=== PATIENT | female | born 1935 | race Two or more races ===

== ENCOUNTER → 2017-03-16 | Outpatient (CLI) | payer MEDICARE ==
[~2017-03-16] MED LIST: REGADENOSON 0.4 MG/5 ML DISP.SYRIN. IV ONE
--- NOTE | 2017-03-16 14:12 | RAD ---
APPROVED REPORT Test Type: Pharmacological Stress Nurse/Tech: Melo Rivas RN Test Indications: chest pain, headache, dizziness Cardiac History: see ehr Medications: see ehr Medical History: see ehr Resting ECG: SB Resting Heart Rate: 39 bpm Resting Blood Pressure: 166/62mmHg Pretest Chest Pain: None Nurse/Tech Notes Lungs CTA, S1, S2 Consent: The procedure was explained to the patient in lay terms. Informed consent was witnessed. Garland eout was entered into Dogi. History and Stress Test performed by Carroll CallahanNMatti Pharm. Details Pharmacologic stress testing was performed using 0.4mg per 5ml of regadenoson given intravenously ove r 7-10 seconds. Stress Symptoms No chest pain or symptoms. POST EXERCISE Reason for Termination: Infusion complete Max HR: 73 bpm Max Blood Pressure: 166/62mmHg Blood Pressure response to exercise: Normal blood pressure response during stress. Chest Pain: No. Arrhythmia: No. ST Change: No. INTERPRETATION Stress EKG Conclusion: The resting EKG showed a sinus bradycardia and mild nonspecific ST segment nando nges. The stress EKG showed no significant changes from baseline. No EKG evidence of stress induced ischemia. Imaging Protocol IMAGE PROTOCOL: Rest Tc-99m/stress Tc-99m 1 day Rest: Stress: Viability: Radiopharm.Tc99m PiknnssatMx05y Sestamibi [id number] 32mCi Duration 15min. 10min. Img Date 03/16/2017 03/16/2017 Inj-Img [id number]. 60min. Rest Admin Site:IV - Right AntecubitalAdministrator:MIKE Alston, ARRT (R)(N) Stress Admin Site: IV - Right AntecubitalAdministrator: Ynes James, RT (R)(N) STRESS DATA End Diast. Vol.60.0mlAv. Heart Rate64.0bpm End Syst. Vol.15.0mlCO Index BSA0.0L/min Myocardial Cftu631.0gEject. Ljinuxhp92.0% Stress Rates Pk. Fill Rate3.48EDV/secLVtime Pk. Fill 249.47msec Pk. Empty Rate3.80ESV/secLVtime Pk. Qwanz201.40msec 1/3 Pk. Fill1.10EDV/sec Stress Scores Regional WT0.00Summed WT0.00 Regional WM0.00Summed WM0.00 LV Perfusion The stress scans showed no defects. The rest scans showed no defects. Nuclear images show no reversible ischemia or infarct. Wall Motion Normal LV systolic function with an ejection fraction of greater than 70%. LV Perf. Quant 17 Seg. SSS1.00 17 Seg. SRS0.00 17 Seg. SDS1.00 Stress Defect Extent (% LAD)0.00Rest Defect Extent (% LAD)0.00Rev. Defect Extent (% LAD)0.00 Stress Defect Extent (% LCX) 0.00Rest Defect Extent (% LCX)0.00Rev. Defect Extent (% LCX)0.00 Stress Defect Extent (% RCA)0.00Rest Defect Extent (% RCA)0.00Rev. Defect Extent (% RCA)0.00 Stress Defect Extent (% HANNA)0.00Rest Defect Extent (% HANNA)0.00Rev. Defect Extent (% HANNA)0.00 Conclusion 1. Baseline sinus bradycardia. 2. No EKG evidence of stress induced ischemia. 3. Nuclear scans show no reversible ischemia or infarct. 4. Normal LV systolic function with an ejection fraction of greater than 70%. 5. Low risk Lexiscan stress test.
== END | disposition home or self-care (01) ==
LOC: NM 08:46
PROVIDERS: ATTEND Physician Assistant
DX: R07.9 Chest pain, unspecified (principal); R42 Dizziness and giddiness; R20.0 Anesthesia of skin; R51 Headache
CPT/HCPCS: 78452; 93017; 96374; 96375; 96376; J2785; A9500

== ENCOUNTER → 2017-07-29 | Outpatient (CLI) | payer MEDICARE ==
--- NOTE | 2017-07-29 11:36 | RAD ---
Indication abdominal pain. A limited abdominal ultrasound examination was performed. Examination was targeted to the right lower quadrant. No obvious abnormality was seen. No mass or hernia was seen in the area scanned. IMPRESSION: Normal targeted ultrasound of the right lower quadrant.
== END | disposition home or self-care (01) ==
LOC: US 10:31
PROVIDERS: ATTEND Physician Assistant
DX: R10.9 Unspecified abdominal pain (principal)
CPT/HCPCS: 76705

== ENCOUNTER 2021-11-08 13:25 | Inpatient (IN) | payer MEDICARE ==
[~2021-11-08] VITALS: Ht 139.7 cm; Wt 69.6 kg
[2021-11-08] MEDS ORDERED: ONDANSETRON PF 4 MG/2 ML VIAL. IVP ONE (16:00)
[2021-11-08] MEDS ORDERED: IV NORMAL SALINE 1000ML BAG 1,000 ML IV ONE (16:00)
--- NOTE | 2021-11-08 16:00 | PHYS DOC ---
Past Medical History Past Medical History: No Pertinent History Past Surgical History: Other Additional Past Surgical Histo: LEFT MASECTOMY (BENIGN), BILATERAL WRIST SX Smoking Status: Never Smoker Alcohol Use: None Drug Use: None General Adult EDM: Chief Complaint: SHORTNESS OF BREATH HPI: HPI: Patient is a 86 year old female with history of arthritis and GERD who presents with 4 days of dyspnea. Patient denies any pain, however states that she has felt increasingly short of breath over the past 4 days, including while at rest. Patient reports associated nausea and anorexia. She reports decreased oral intake of both food and fluids. She denies fever, chills, nasal congestion, sore throat chest pain, palpitations, productive cough, abdominal pain, vomiting, diarrhea, constipation. Review of Systems: Review of Systems: Constitutional: See HPI Respiratory: See HPI Cardiovascular: See HPI GI: See HPI : Denies dysuria or hematuria. Musculoskeletal: Denies back pain or joint pain. Integument: Denies rash or other skin lesions. Neurologic: Denies headache, focal weakness or sensory changes. Heart Score: C/O Chest Pain: No Allergies: Allergies: Allergies Coded Allergies Type Severity Reaction Last Updated Verified No Known Drug Allergies 03/16/17 No Physical Exam: PE: Constitutional: Well developed, well nourished, no acute distress, non-toxic appearance. Cardiovascular: Heart rate regular rhythm, no murmur. Lungs & Thorax: Left basilar wet crackles, clear to auscultation in other lung soto. Abdomen: Bowel sounds normal, soft, no tenderness, no masses, no pulsatile masses. Skin: Warm, dry, no erythema, no rash. Back: No step-off, no tenderness. Extremities: No tenderness, no cyanosis, no clubbing, ROM intact, no edema. Bilateral varicose veins distal lower extremities. Neurologic: Alert and oriented x4, no focal deficits noted. Current Patient Data: Labs: Laboratory Tests Test 11/08/21 15:26 11/08/21 16:02 Influenza Type A Antigen Negative (NEGATIVE) Influenza Type B Antigen Negative (NEGATIVE) SARS-CoV-2 Antigen (Rapid) Positive (NEGATIVE) White Blood Count 6.0 x10^3/uL (4.0-11.0) Red Blood Count 4.45 x10^6/uL (3.50-5.40) Hemoglobin 14.7 g/dL (12.0-15.5) Hematocrit 43.3 % (36.0-47.0) Mean Corpuscular Volume 97 fL (79-100) Mean Corpuscular Hemoglobin 33 pg (25-35) Mean Corpuscular Hemoglobin Concent 34 g/dL (31-37) Red Cell Distribution Width 13.9 % (11.5-14.5) Platelet Count 186 x10^3/uL (140-400) Neutrophils (%) (Auto) 75 % (31-73) Lymphocytes (%) (Auto) 14 % (24-48) Monocytes (%) (Auto) 11 % (0-9) Eosinophils (%) (Auto) 0 % (0-3) Basophils (%) (Auto) 0 % (0-3) Neutrophils # (Auto) 4.5 x10^3/uL (1.8-7.7) Lymphocytes # (Auto) 0.8 x10^3/uL (1.0-4.8) Monocytes # (Auto) 0.6 x10^3/uL (0.0-1.1) Eosinophils # (Auto) 0.0 x10^3/uL (0.0-0.7) Basophils # (Auto) 0.0 x10^3/uL (0.0-0.2) Sodium Level 141 mmol/L (136-145) Potassium Level 4.8 mmol/L (3.5-5.1) Chloride Level 106 mmol/L (98-107) Carbon Dioxide Level 27 mmol/L (21-32) Anion Gap 8 (6-14) Blood Urea Nitrogen 35 mg/dL (7-20) Creatinine 1.4 mg/dL (0.6-1.0) Estimated GFR (Cockcroft-Gault) 35.7 BUN/Creatinine Ratio 25 (6-20) Glucose Level 116 mg/dL (70-99) Calcium Level 8.4 mg/dL (8.5-10.1) Total Bilirubin 0.5 mg/dL (0.2-1.0) Aspartate Amino Transf (AST/SGOT) 86 U/L (15-37) Alanine Aminotransferase (ALT/SGPT) 37 U/L (14-59) Alkaline Phosphatase 143 U/L (46-116) Total Protein 7.4 g/dL (6.4-8.2) Albumin 3.2 g/dL (3.4-5.0) Albumin/Globulin Ratio 0.8 (1.0-1.7) Vital Signs: Vital Signs Date Time Temp Pulse Resp B/P (MAP) Pulse Ox O2 Delivery O2 Flow Rate FiO2 11/08/21 15:15 68 16 145/68 (93) 94 Room Air EKG: EKG: EKG Interpreted by Dr. Boswell at 1521: Regular rate and rhythm 69 bpm with no ecto pic beats. QT 402 ms/QTc 432 ms. No STEMI. Radiology/Procedures: Radiology/Procedures: PROCEDURE: PORTABLE CHEST 1V XR CHEST 1V Clinical History: Reason: SOB / Spl. Instructions: / History: Technique: AP view of the chest was obtained at 11/08/2021 4:00 PM. Comparison: None. Findings: The heart is top normal in size. There is patchy reticular opacities of the lungs bilaterally. The pulmonary vessels are not well seen. Impression: Interstitial opacities is nonspecific and could be pulmonary edema or atypical pneumonia or chronic pulmonary fibrosis. Comparison to old chest x-ray may be h elpful. Electronically signed by: Eris Kathleen III, MD (11/08/2021 4:33 PM) [facility] Course & Med Decision Making: Course & Med Decision Making Pertinent Labs and Imaging studies reviewed. (See chart for details) Patient is an 86-year-old female with noncontributory past medical history who presents with 4 days of shortness of breath. Physical exam concerning for left lower lobe pathology. Work-up today will include labs, Covid and flu testing, chest x-ray. Patient is Covid positive with evidence of atypical pneumonia on chest x-ray as well as new oxygen requirement of 2L NC. Patient gladly accepted by Dr. Luz for admission. Pulmonology will be consulted. Dragon Disclaimer: DragJaspersoft Disclaimer: This electronic medical record was generated, in whole or in part, using a voice recognition dictation system. Departure Departure Impression: Primary Impression: Acute hypoxemic respiratory failure due to COVID-19 Disposition: ADMITTED INPATIENT Admitting Physician: Randolph Luz Referrals: RANDOLPH LUZ MD (PCP) LENA LARSON Nov 08, 2021 16:00
[2021-11-08 16:14] LABS: INFLUENZA A PATIENT NEGATIVE (NEGATIVE); INFLUENZA B PATIENT NEGATIVE (NEGATIVE)
[2021-11-08 16:20] LABS: BASO % 0 % (0-3); EOS % 0 % (0-3); HEMATOCRIT 43.3 % (36.0-47.0); HEMOGLOBIN 14.7 g/dL (12.0-15.5); LYMPH # 0.8 x10^3/uL (1.0-4.8); LYMPH % 14 % (24-48); MEAN CORPUSCULAR HEMOGLOBIN 33 pg (25-35); MEAN CORPUSCULAR HGB CONC 34 g/dL (31-37); MEAN CORPUSCULAR VOLUME 97 fL (79-100); MONO # 0.6 x10^3/uL (0.0-1.1); MONO % 11 % (0-9); NEUT # 4.5 x10^3/uL (1.8-7.7); NEUT % 75 % (31-73); PLATELET COUNT 186 x10^3/uL (140-400); RED BLOOD COUNT 4.45 x10^6/uL (3.50-5.40); RED CELL DISTRIBUTION WIDTH 13.9 % (11.5-14.5)
[2021-11-08] MEDS ORDERED: ONDANSETRON PF 4 MG/2 ML VIAL. IVP PRN (16:30)
[2021-11-08] MEDS ORDERED: DEXAMETHASONE SOD PHOS 4 MG/ML VIAL IVP ONE (16:30)
[2021-11-08 16:34] LABS: CALCIUM 8.4 mg/dL (8.5-10.1); CREATININE 1.4 mg/dL (0.6-1.0); GFR 35.7; POTASSIUM 4.8 mmol/L (3.5-5.1)
--- NOTE | 2021-11-08 16:36 | RAD ---
XR CHEST 1V Clinical History: Reason: SOB / Spl. Instructions: / History: Technique: AP view of the chest was obtained at 11/08/2021 4:00 PM. Comparison: None. Findings: The heart is top normal in size. There is patchy reticular opacities of the lungs bilaterally. The pu lmonary vessels are not well seen. Impression: Interstitial opacities is nonspecific and could be pulmonary edema or atypical pneumonia or chronic p ulmonary fibrosis. Comparison to old chest x-ray may be helpful. Electronically signed by: Eris Kathleen III, MD (11/08/2021 4:33 PM) [facility]
[2021-11-08 16:39] LABS: ALBUMIN 3.2 g/dL (3.4-5.0); ALBUMIN/GLOBULIN RATIO 0.8 (1.0-1.7); TOTAL BILIRUBIN 0.5 mg/dL (0.2-1.0); TOTAL PROTEIN 7.4 g/dL (6.4-8.2)
--- NOTE | 2021-11-08 18:20 | EKG ---
[facility] [address] [place] [address] Test Date: 2021-11-08 Test Time: 15:16:58 Pat Name: JD COOK Department: Room: Gender: F Subcontracts Manager: : 1935 Requested By: LENA LARSON Order Number: [id number] Reading MD: Wade Valdez MD Measurements Intervals [place] Rate: 69 P: 41 MO: 186 QRS: -41 QRSD: 74 T: 36 QT: 402 QTc: 432 Interpretive Statements SINUS RHYTHM LAD NON-SPECIFIC ST/T CHANGES Electronically Signed On 11-09-2021 9:22:17 RIVET SPINNER by Wade Valdez MD
[2021-11-08] MEDS: ACETAMINOPHEN 325 MG TABLET. PO PRN (18:44)
[2021-11-08 20:30] VITALS: BP 139/49
[2021-11-08 22:50] VITALS: BP 132/75
[2021-11-09 03:35] VITALS: BP 114/76
[2021-11-09 07:00] VITALS: BP 141/62
--- NOTE | 2021-11-09 08:41 | PDOC ---
Provider Note Date of Service: DATE: 11/09/21 TIME: 08:41 Provider Note dictated Justifications for Admission Other Justification LJ LUZ MD Nov 09, 2021 08:41
--- NOTE | 2021-11-09 09:55 | CONS ---
DATE OF CONSULTATION: 11/09/2021 PULMONARY CONSULTATION ATTENDING PHYSICIAN: Randolph Hernandez MD. REASON FOR CONSULTATION: COVID-19 pneumonia and respiratory failure. HISTORY OF PRESENT ILLNESS: The patient is an 86-year-old female who has a history of arthritis and GERD. She presented to the hospital with 4 days of dyspnea. She has a mild cough. No chest pain, no headaches, no nausea, vomiting, no diarrhea, no dysuria. The patient is not vaccinated for COVID. She was tested positive for COVID. Chest x-ray revealed mild interstitial infiltrates. She is currently requiring only 2 liters of oxygen via nasal cannula. I have been asked to see her for further evaluation. PAST MEDICAL HISTORY: Significant for history of GERD and arthritis. PAST SURGICAL HISTORY: Left mastectomy. ALLERGIES: None. MEDICATIONS: Reviewed as listed in the MRAD. SYSTEM REVIEW: A 12-point system obtained. Pertinent positives discussed in my present illness, otherwise noncontributory. All systems that were negative were reviewed as well. SOCIAL HISTORY: Nonsmoker. FAMILY HISTORY: Noncontributory to lungs. PHYSICAL EXAMINATION: VITAL SIGNS: Reviewed. She is afebrile, pulse ox 96% on 2 liters. GENERAL: Visual exam done due to COVID-19. No paradoxical breathing. No skin rash. EXTREMITIES: No leg edema. LABORATORY DATA: Reviewed. BUN 35, creatinine 1.4. Sodium 141. White cell count 6, hemoglobin 14.7, platelets 186. IMPRESSION: 1. Acute hypoxic respiratory failure secondary to COVID-19 viral pneumonia. 2. Abnormal chest x-ray with bilateral interstitial infiltrates consistent with COVID-19 viral pneumonia. 3. No significant tobacco use. 4. Acute kidney injury. RECOMMENDATIONS: 1. The patient is stable from a pulmonary standpoint. She is currently on 2 liters nasal cannula. 2. We will continue to finish dexamethasone for a total of 10 days. 3. Initiate remdesivir if oxygen requirement worsened. 4. IV hydration and follow renal function. 5. If oxygen requirement remains stable, she could be discharged in the next 24 hours. 6. Discussed with RN. MOSQUERA/NAM DR: Angel TID: [id number]
[2021-11-09] MEDS: DEXAMETHASONE SOD PHOS 4 MG/ML VIAL IVP SCH (10:28)
[2021-11-09 11:00] VITALS: BP 150/72
--- NOTE | 2021-11-09 11:12 | HP ---
DATE OF SERVICE: 11/09/2021 ADMIT DATE: 11/08/2021 CHIEF COMPLAINT: Weakness, cough and fatigue. HISTORY OF PRESENT ILLNESS: An 86-year-old white female with arthritis and mild hypertension was seen recently in the office for medical evaluation and everything was doing well and stable. In the last 3 days, she has had a low-grade fever, headache, some change in sense of smell and general malaise. She does not really describe cough, dyspnea, sputum production or other symptoms. She may have been exposed to COVID through her son-in-law, who is currently in the hospital and she has not been vaccinated against COVID. ER evaluations revealed COVID positive on the rapid test and chest x-ray showed scattered mild opacities. She was admitted after IV Decadron and feels a little better at this time. PAST HISTORY AND HOME MEDICATIONS: Are not available. No allergies. No other serious known medical problems. SOCIAL HISTORY: She is . She still works at [employer]. She is nonsmoker, nondrinker. FAMILY HISTORY: Unremarkable. REVIEW OF SYSTEMS: No other complaints. OBJECTIVE: ENT: All within normal limits. NECK: No masses, nodes or bruits. LUNGS: Decreased breath sounds, no wheezing, cough or sputum production. CARDIOVASCULAR: Regular rate. No tachycardia or murmur. ABDOMEN: Benign. EXTREMITIES: Unremarkable. Good pedal pulses. NEUROLOGIC: Physiologic and nonfocal. Gait not tested. Mental status was unremarkable and intact. ASSESSMENT: COVID positive with relatively mild symptoms to this point. PLAN: Continue IV Decadron. Likely, we will add remdesivir after seen by Dr. Duran, so it can be ordered. KIRBY/SEAN/HALIMA PHILLIP: KIRBY/shani TID: [id number]
--- NOTE | 2021-11-09 11:48 | NUR ---
SW following. Discussed with RN, pt from home with , 2L (does not use oxygen at home), regular diet, COVID-19 positive. Pulmonology following. RN advised no SW needs at this time. SW will continue to follow.
[2021-11-09] MEDS: ACETAMINOPHEN 325 MG TABLET. PO PRN (12:53)
[2021-11-09] MEDS ORDERED: DICL75TA PO (13:40)
[2021-11-09] MEDS ORDERED: SERT25TA PO (13:40)
[2021-11-09] MEDS ORDERED: OMEP40CA7 PO (13:40)
[2021-11-09] MEDS ORDERED: HYDR-2761 PO (13:40)
[2021-11-09 15:00] VITALS: BP 143/76
[2021-11-09] MEDS ORDERED: ACETAMINOPHEN 325 MG TABLET. PO PRN (18:00)
[2021-11-09] MEDS ORDERED: HYDROcodone/APAP 5/325MG 1 TAB TABLET PO PRN (18:00)
[2021-11-09] MEDS ORDERED: ACETAMINOPHEN 325 MG TABLET. PO ONE (18:15)
[2021-11-09 19:00] VITALS: BP 123/63
[2021-11-09] MEDS: PANTOPRAZOLE 40 MG TABLET.DR. PO SCH (20:50)
[2021-11-09] MEDS: SERTRALINE 25 MG TABLET. PO SCH (20:50)
[2021-11-09 23:00] VITALS: BP 139/49
[2021-11-10] VITALS (7 sets, daily range): BP systolic 130–170; BP diastolic 54–135
[2021-11-10] MEDS ORDERED: PANTOPRAZOLE 40 MG TABLET.DR. PO SCH (07:30)
[2021-11-10] MEDS: SERTRALINE 25 MG TABLET. PO SCH (07:39)
[2021-11-10] MEDS: PANTOPRAZOLE 40 MG TABLET.DR. PO SCH (07:39)
[2021-11-10] MEDS: DEXAMETHASONE SOD PHOS 4 MG/ML VIAL IVP SCH (07:39)
--- NOTE | 2021-11-10 08:16 | PDOC ---
PULMONARY PROGRESS NOTES DATE: 11/10/21 TIME: 08:16 Subjective Patient not more short of air, increase oxygen requirement overnight Vitals Vital Signs Date Time Temp Pulse Resp B/P (MAP) Pulse Ox O2 Delivery O2 Flow Rate FiO2 11/10/21 07:51 Nasal Cannula 5.0 11/10/21 03:00 97.9 60 20 155/67 (96) 90 97.9 ROS: No Nausea, No Chest Pain, No Abdominal Pain, No Increase Cough General: Alert Lungs: Crackles Cardiovascular: S1, S2 Abdomen: Soft, Non-tender Neuro Exam: Alert Extremities: No Edema Skin: Warm Labs Laboratory Tests Test 11/08/21 15:26 11/08/21 16:02 Influenza Type A Antigen Negative (NEGATIVE) Influenza Type B Antigen Negative (NEGATIVE) SARS-CoV-2 Antigen (Rapid) Positive (NEGATIVE) White Blood Count 6.0 x10^3/uL (4.0-11.0) Red Blood Count 4.45 x10^6/uL (3.50-5.40) Hemoglobin 14.7 g/dL (12.0-15.5) Hematocrit 43.3 % (36.0-47.0) Mean Corpuscular Volume 97 fL (79-100) Mean Corpuscular Hemoglobin 33 pg (25-35) Mean Corpuscular Hemoglobin Concent 34 g/dL (31-37) Red Cell Distribution Width 13.9 % (11.5-14.5) Platelet Count 186 x10^3/uL (140-400) Neutrophils (%) (Auto) 75 % (31-73) Lymphocytes (%) (Auto) 14 % (24-48) Monocytes (%) (Auto) 11 % (0-9) Eosinophils (%) (Auto) 0 % (0-3) Basophils (%) (Auto) 0 % (0-3) Neutrophils # (Auto) 4.5 x10^3/uL (1.8-7.7) Lymphocytes # (Auto) 0.8 x10^3/uL (1.0-4.8) Monocytes # (Auto) 0.6 x10^3/uL (0.0-1.1) Eosinophils # (Auto) 0.0 x10^3/uL (0.0-0.7) Basophils # (Auto) 0.0 x10^3/uL (0.0-0.2) Sodium Level 141 mmol/L (136-145) Potassium Level 4.8 mmol/L (3.5-5.1) Chloride Level 106 mmol/L (98-107) Carbon Dioxide Level 27 mmol/L (21-32) Anion Gap 8 (6-14) Blood Urea Nitrogen 35 mg/dL (7-20) Creatinine 1.4 mg/dL (0.6-1.0) Estimated GFR (Cockcroft-Gault) 35.7 BUN/Creatinine Ratio 25 (6-20) Glucose Level 116 mg/dL (70-99) Calcium Level 8.4 mg/dL (8.5-10.1) Total Bilirubin 0.5 mg/dL (0.2-1.0) Aspartate Amino Transf (AST/SGOT) 86 U/L (15-37) Alanine Aminotransferase (ALT/SGPT) 37 U/L (14-59) Alkaline Phosphatase 143 U/L (46-116) Total Protein 7.4 g/dL (6.4-8.2) Albumin 3.2 g/dL (3.4-5.0) Albumin/Globulin Ratio 0.8 (1.0-1.7) Medications Active Scripts Medications Dose Route/Sig Max Daily Dose Days Date Category Omeprazole 40 Mg Capsule. 1 Cap PO DAILY 11/09/21 Reported Hydrocodone-Apap 5-325 (Hydrocodone Bit/Acetaminophen) 1 Tab Tablet 1 Tab PO PRN DAILY PRN 11/09/21 Reported Zoloft (Sertraline Hcl) 25 Mg Tablet 1 Tab PO DAILY 11/09/21 Reported Diclofenac Sodium 75 Mg Tablet. 75 Mg PO DAILY 11/09/21 Reported Impression . IMPRESSION: 1. Acute hypoxic respiratory failure secondary to COVID-19 viral pneumonia. 2. Abnormal chest x-ray with bilateral interstitial infiltrates consistent with COVID-19 viral pneumonia. 3. No significant tobacco use. 4. Acute kidney injury. Plan . Updated 11/10 Work-up for ? hematemesis, per PCP Continue oxygen supplementation Continue steroids 11/09 RECOMMENDATIONS: 1. The patient is stable from a pulmonary standpoint. She is currently on 2 liters nasal cannula. 2. We will continue to finish dexamethasone for a total of 10 days. 3. Initiate remdesivir if oxygen requirement worsened. 4. IV hydration and follow renal function. 5. If oxygen requirement remains stable, she could be discharged in the next 24 hours. 6. Discussed with RN. JEAN LAY MD Nov 10, 2021 08:16
--- NOTE | 2021-11-10 08:29 | PDOC ---
Provider Note Date of Service: DATE: 11/10/21 TIME: 08:28 Provider Note vss, no temp, O2 need higher- has black emesis, will hematest and add carafate to pantop re steroids, follow hb/hct Justifications for Admission Other Justification LJ LUZ MD Nov 10, 2021 08:29
--- NOTE | 2021-11-10 08:30 | NUR ---
This RN notified Dr. Hernandez in person of pt's vomiting episode of black emesis. Dr. Hernandez stated he would place orders.
[2021-11-10] MEDS ORDERED: SERTRALINE 25 MG TABLET. PO SCH (09:00)
[2021-11-10 09:13] LABS: HEMATOCRIT 45.1 % (36.0-47.0); HEMOGLOBIN 14.6 g/dL (12.0-15.5); RED BLOOD COUNT 4.6 x10^6/uL (3.50-5.40); RED CELL DISTRIBUTION WIDTH 14.1 % (11.5-14.5); WHITE BLOOD COUNT 13.6 x10^3/uL (4.0-11.0)
[2021-11-10] MEDS: SUCRALFATE 1 GM TABLET. PO SCH ×3 (11:42→21:00)
[2021-11-10] MEDS: HYDROcodone/APAP 5/325MG 1 TAB TABLET PO PRN (14:03)
[2021-11-10 16:28] LABS: GASTRIC OB PAT POSITIVE (NEG)
[2021-11-11 03:00] VITALS: BP_SYST 102; BP_SYST 145; BP_DIAS 62; BP_DIAS 66
[2021-11-11 07:00] VITALS: BP 167/99
--- NOTE | 2021-11-11 07:37 | PDOC ---
Provider Note Date of Service: DATE: 11/11/21 TIME: 07:35 Provider Note no more CG emesis, was heme +- hb same, carafate added- will assess O2 need, can dc today on O2 if needed Justifications for Admission Other Justification LJ LUZ MD Nov 11, 2021 07:37
--- NOTE | 2021-11-11 08:02 | PDOC ---
PULMONARY PROGRESS NOTES DATE: 11/11/21 TIME: 08:02 Subjective Patient not more short of air, increase oxygen requirement overnight Vitals Vital Signs Date Time Temp Pulse Resp B/P (MAP) Pulse Ox O2 Delivery O2 Flow Rate FiO2 11/11/21 03:00 97.6 65 18 102/66 (78) 96 Room Air 97.6 11/11/21 03:00 2.0 ROS: No Nausea, No Chest Pain, No Abdominal Pain, No Increase Cough General: Alert Lungs: Crackles Cardiovascular: S1, S2 Abdomen: Soft, Non-tender Neuro Exam: Alert Extremities: No Edema Skin: Warm Labs Laboratory Tests Test 11/10/21 08:50 11/10/21 14:19 White Blood Count 13.6 x10^3/uL (4.0-11.0) Red Blood Count 4.60 x10^6/uL (3.50-5.40) Hemoglobin 14.6 g/dL (12.0-15.5) Hematocrit 45.1 % (36.0-47.0) Mean Corpuscular Volume 98 fL (79-100) Mean Corpuscular Hemoglobin 32 pg (25-35) Mean Corpuscular Hemoglobin Concent 32 g/dL (31-37) Red Cell Distribution Width 14.1 % (11.5-14.5) Platelet Count 247 x10^3/uL (140-400) Gastric Fluid Occult Blood Positive (NEG) Laboratory Tests Test 11/10/21 08:50 11/10/21 14:19 White Blood Count 13.6 x10^3/uL (4.0-11.0) Red Blood Count 4.60 x10^6/uL (3.50-5.40) Hemoglobin 14.6 g/dL (12.0-15.5) Hematocrit 45.1 % (36.0-47.0) Mean Corpuscular Volume 98 fL (79-100) Mean Corpuscular Hemoglobin 32 pg (25-35) Mean Corpuscular Hemoglobin Concent 32 g/dL (31-37) Red Cell Distribution Width 14.1 % (11.5-14.5) Platelet Count 247 x10^3/uL (140-400) Gastric Fluid Occult Blood Positive (NEG) Medications Active Scripts Medications Dose Route/Sig Max Daily Dose Days Date Category Omeprazole 40 Mg Capsule.dr 1 Cap PO DAILY 11/09/21 Reported Hydrocodone-Apap 5-325 (Hydrocodone Bit/Acetaminophen) 1 Tab Tablet 1 Tab PO PRN DAILY PRN 11/09/21 Reported Zoloft (Sertraline Hcl) 25 Mg Tablet 1 Tab PO DAILY 11/09/21 Reported Diclofenac Sodium 75 Mg Tablet. 75 Mg PO DAILY 11/09/21 Reported Impression . IMPRESSION: 1. Acute hypoxic respiratory failure secondary to COVID-19 viral pneumonia. 2. Abnormal chest x-ray with bilateral interstitial infiltrates consistent with COVID-19 viral pneumonia. 3. No significant tobacco use. 4. Acute kidney injury. Plan . 11/11 6 min walk possible dc today d/w JEAN ZARCO MD Nov 11, 2021 08:02
[2021-11-11] MEDS: SUCRALFATE 1 GM TABLET. PO SCH ×5 (08:41→21:16)
[2021-11-11] MEDS: PANTOPRAZOLE 40 MG TABLET.DR. PO SCH (08:41)
[2021-11-11] MEDS: DEXAMETHASONE SOD PHOS 4 MG/ML VIAL IVP SCH (08:42)
[2021-11-11] MEDS: SERTRALINE 25 MG TABLET. PO SCH (08:42)
[2021-11-11 11:00] VITALS: BP 168/79
[2021-11-11 15:00] VITALS: BP 161/82
--- NOTE | 2021-11-11 18:05 | NUR ---
1130 medication administration documented via downtime form by this RN.
[2021-11-11 19:55] VITALS: BP_SYST 114
[2021-11-11] MEDS: HYDROcodone/APAP 5/325MG 1 TAB TABLET PO PRN (21:16)
[2021-11-11 23:50] VITALS: BP 160/60
[2021-11-12 07:00] VITALS: BP 143/89
--- NOTE | 2021-11-12 08:09 | PDOC ---
Provider Note Date of Service: DATE: 11/12/21 TIME: 08:08 Provider Note [id number] Justifications for Admission Other Justification LJ LUZ MD Nov 12, 2021 08:09
--- NOTE | 2021-11-12 08:37 | PDOC ---
PULMONARY PROGRESS NOTES DATE: 11/12/21 TIME: 08:37 Subjective Patient has deteriorated over the last 24 to 48 hours, currently requiring nonrebreather Patient is more short of air Vitals Vital Signs Date Time Temp Pulse Resp B/P (MAP) Pulse Ox O2 Delivery O2 Flow Rate FiO2 11/12/21 03:45 24 Nasal Cannula 5.0 11/11/21 23:50 98.0 69 160/60 (93) 92 98.0 ROS: No Nausea, No Chest Pain, No Abdominal Pain, No Increase Cough General: Alert Lungs: Crackles Cardiovascular: S1, S2 Abdomen: Soft, Non-tender Neuro Exam: Alert Extremities: No Edema Skin: Warm Labs Laboratory Tests Test 11/10/21 08:50 11/10/21 14:19 White Blood Count 13.6 x10^3/uL (4.0-11.0) Red Blood Count 4.60 x10^6/uL (3.50-5.40) Hemoglobin 14.6 g/dL (12.0-15.5) Hematocrit 45.1 % (36.0-47.0) Mean Corpuscular Volume 98 fL (79-100) Mean Corpuscular Hemoglobin 32 pg (25-35) Mean Corpuscular Hemoglobin Concent 32 g/dL (31-37) Red Cell Distribution Width 14.1 % (11.5-14.5) Platelet Count 247 x10^3/uL (140-400) Gastric Fluid Occult Blood Positive (NEG) Medications Active Scripts Medications Dose Route/Sig Max Daily Dose Days Date Category Omeprazole 40 Mg Capsule. 1 Cap PO DAILY 11/09/21 Reported Hydrocodone-Apap 5-325 (Hydrocodone Bit/Acetaminophen) 1 Tab Tablet 1 Tab PO PRN DAILY PRN 11/09/21 Reported Zoloft (Sertraline Hcl) 25 Mg Tablet 1 Tab PO DAILY 11/09/21 Reported Diclofenac Sodium 75 Mg Tablet. 75 Mg PO DAILY 11/09/21 Reported Impression . IMPRESSION: 1. Acute hypoxic respiratory failure secondary to COVID-19 viral pneumonia. 2. Abnormal chest x-ray with bilateral interstitial infiltrates consistent with COVID-19 viral pneumonia. 3. No significant tobacco use. 4. Acute kidney injury. Plan . 11/13 Patient continues to be more short of air, continues to require oxygen Oxygen needs have increased Discussed with Dr. Hernandez Continue current support Patient is currently full code SISILLO,SABATO MD Nov 12, 2021 08:37
[2021-11-12] MEDS: SUCRALFATE 1 GM TABLET. PO SCH ×4 (09:28→20:35)
[2021-11-12] MEDS: PANTOPRAZOLE 40 MG TABLET.DR. PO SCH (09:28)
[2021-11-12] MEDS: SERTRALINE 25 MG TABLET. PO SCH (09:28)
[2021-11-12] MEDS: DEXAMETHASONE 4 MG TABLET PO SCH (09:28)
[2021-11-12] MEDS: HYDROcodone/APAP 5/325MG 1 TAB TABLET PO PRN ×2 (09:42→16:46)
--- NOTE | 2021-11-12 10:28 | DS ---
DATE OF DISCHARGE: 11/12/2021 HOSPITAL SUMMARY: An 86-year-old female who came in with cough, shortness of breath and fatigue. Normal laboratory studies and COVID was positive on admission. Chest x-ray showed scant bilateral infiltrates. She was treated with IV Decadron and oxygen and is anxious to go home. Oxygen assessment will be done today and home oxygen provided that she can go home safely. She had some heme-positive dark emesis and Carafate was added to her steroid regimen and this remained beneficial and no further vomiting and no loss of hemoglobin was noted. FINAL DIAGNOSES: 1. COVID-19 pneumonia with hypoxemia. 2. Steroid-induced gastritis. OPERATIONS, PROCEDURES, AND COMPLICATIONS: None. CONSULTATION: Robert Coelho MD. DISPOSITION: She will go home on the same home meds and will not take further Decadron at this point. Home oxygen will be assessed and provided based on her results of 6-minute walk today per Dr. Coelho. Office followup by telemedicine in 1 week. PROGNOSIS: Good. WESLEY/ROSA DR: Gina TID: [id number]
[2021-11-12 11:00] VITALS: BP 150/69
[2021-11-12 15:00] VITALS: BP 139/78
--- NOTE | 2021-11-12 15:35 | NUR ---
SW following. Discussed with RN, pt failed 6 minute walk. RN trying to reach Dr. Hernandez. Likely need a repeat 6 minute walk in a day or two. SW will continue to follow.
[2021-11-12 19:00] VITALS: BP 141/71
--- NOTE | 2021-11-12 19:25 | NUR ---
Nurse's note: The patient failed the 6 minute walk. Per RT the patient's O2 sat dropped to 79 at 1 minute and had to be placed on [address] Hernandez updated, will cancel discharge. Spoke to the patient's daughter and discussed the update and recommendations.
[2021-11-12 23:00] VITALS: BP 126/62
[2021-11-13] VITALS (7 sets, daily range): BP systolic 125–190; BP diastolic 56–99
[2021-11-13] MEDS: SUCRALFATE 1 GM TABLET. PO SCH ×5 (07:30→19:39)
[2021-11-13] MEDS: PANTOPRAZOLE 40 MG TABLET.DR. PO SCH (08:52)
[2021-11-13] MEDS: DEXAMETHASONE 4 MG TABLET PO SCH (08:52)
[2021-11-13] MEDS: SERTRALINE 25 MG TABLET. PO SCH (08:52)
--- NOTE | 2021-11-13 10:41 | PDOC ---
Provider Note Date of Service: DATE: 11/13/21 TIME: 10:25 Provider Note O2 requirement much higher , she decided not to leave after all. no temp,but more tachypneic- still wants to go home, i discussed with daughter- will add some iv fluids and proph lovenox, she is dnr and does not want intubation Justifications for Admission Other Justification LJ LUZ MD Nov 13, 2021 10:41
[2021-11-13] MEDS: ENOXAPARIN 30 MG/0.3 ML SYRINGE. SQ SCH (10:57)
[2021-11-13] MEDS: POTASSIUM CL 20MEQ D5-0.45NACL 1,000 ML IV SCH ×2 (10:59→23:58)
[2021-11-13] MEDS: HYDROcodone/APAP 5/325MG 1 TAB TABLET PO PRN (19:39)
[2021-11-14] VITALS (7 sets, daily range): BP systolic 135–187; BP diastolic 51–89
[2021-11-14] MEDS: PANTOPRAZOLE 40 MG TABLET.DR. PO SCH (07:57)
[2021-11-14] MEDS: SUCRALFATE 1 GM TABLET. PO SCH ×4 (07:57→21:00)
[2021-11-14] MEDS: DEXAMETHASONE 4 MG TABLET PO SCH (07:58)
[2021-11-14] MEDS: SERTRALINE 25 MG TABLET. PO SCH (07:58)
--- NOTE | 2021-11-14 08:55 | PDOC ---
PULMONARY PROGRESS NOTES DATE: 11/14/21 TIME: 08:54 Subjective Continues to require nonrebreather , patient has deteriorated over the last 24 to 48 hours, Patient is more short of air Vitals Vital Signs Date Time Temp Pulse Resp B/P (MAP) Pulse Ox O2 Delivery O2 Flow Rate FiO2 11/14/21 07:00 97.4 76 20 135/58 (83) 94 Nasal Cannula 10.0 97.4 ROS: No Nausea, No Chest Pain, No Abdominal Pain, No Increase Cough General: Alert Lungs: Crackles Cardiovascular: S1, S2 Abdomen: Soft, Non-tender Neuro Exam: Alert Extremities: No Edema Skin: Warm Medications Active Scripts Medications Dose Route/Sig Max Daily Dose Days Date Category Omeprazole 40 Mg Capsule. 1 Cap PO DAILY 11/09/21 Reported Hydrocodone-Apap 5-325 (Hydrocodone Bit/Acetaminophen) 1 Tab Tablet 1 Tab PO PRN DAILY PRN 11/09/21 Reported Zoloft (Sertraline Hcl) 25 Mg Tablet 1 Tab PO DAILY 11/09/21 Reported Diclofenac Sodium 75 Mg Tablet. 75 Mg PO DAILY 11/09/21 Reported Impression . IMPRESSION: 1. Acute hypoxic respiratory failure secondary to COVID-19 viral pneumonia. 2. Abnormal chest x-ray with bilateral interstitial infiltrates consistent with COVID-19 viral pneumonia. 3. No significant tobacco use. 4. Acute kidney injury. Plan . Updated 11/14 Continue oxygen supplementation Steroids DVT prophylaxis Patient is currently DNR 11/13 Patient continues to be more short of air, continues to require oxygen Oxygen needs have increased Discussed with Dr. Hernandez Continue current support Patient is currently full code JEAN LAY MD Nov 14, 2021 08:55
[2021-11-14] MEDS: HYDROcodone/APAP 5/325MG 1 TAB TABLET PO PRN (09:25)
--- NOTE | 2021-11-14 12:20 | PDOC ---
Provider Note Date of Service: DATE: 11/14/21 TIME: 12:16 Provider Note vss, no temp O2 need same- she seems to be less dyspneic and feel a litlle better, no tachycardia- on iv fluid suppoort, she is DNR, cont dexameth po now Justifications for Admission Other Justification LJ LUZ MD Nov 14, 2021 12:20
[2021-11-14] MEDS: ENOXAPARIN 30 MG/0.3 ML SYRINGE. SQ SCH (12:37)
[2021-11-14] MEDS: POTASSIUM CL 20MEQ D5-0.45NACL 1,000 ML IV SCH (18:35)
[2021-11-15] MEDS: POTASSIUM CL 20MEQ D5-0.45NACL 1,000 ML IV SCH ×2 (00:30→18:20)
[2021-11-15 03:00] VITALS: BP 154/71
[2021-11-15] MEDS: HYDROcodone/APAP 5/325MG 1 TAB TABLET PO PRN (04:53)
[2021-11-15 07:00] VITALS: BP 144/67
[2021-11-15 07:50] LABS: BASO % 0 % (0-3); EOS % 0 % (0-3); HEMATOCRIT 36.7 % (36.0-47.0); HEMOGLOBIN 12.8 g/dL (12.0-15.5); LYMPH # 0.4 x10^3/uL (1.0-4.8); LYMPH % 3 % (24-48); MEAN CORPUSCULAR HEMOGLOBIN 33 pg (25-35); MEAN CORPUSCULAR HGB CONC 35 g/dL (31-37); MEAN CORPUSCULAR VOLUME 95 fL (79-100); MONO # 0.8 x10^3/uL (0.0-1.1); MONO % 5 % (0-9); NEUT # 14.8 x10^3/uL (1.8-7.7); NEUT % 92 % (31-73); PLATELET COUNT 241 x10^3/uL (140-400); RED BLOOD COUNT 3.88 x10^6/uL (3.50-5.40); RED CELL DISTRIBUTION WIDTH 13.6 % (11.5-14.5)
[2021-11-15 08:04] LABS: CALCIUM 7.8 mg/dL (8.5-10.1); CREATININE 0.8 mg/dL (0.6-1.0); GFR 68.2; POTASSIUM 3.8 mmol/L (3.5-5.1)
[2021-11-15] MEDS: SUCRALFATE 1 GM TABLET. PO SCH ×4 (08:11→21:27)
[2021-11-15] MEDS: DEXAMETHASONE 4 MG TABLET PO SCH (08:11)
[2021-11-15] MEDS: SERTRALINE 25 MG TABLET. PO SCH (08:12)
[2021-11-15] MEDS: PANTOPRAZOLE 40 MG TABLET.DR. PO SCH (08:12)
[2021-11-15 10:54] LABS: % BANDS 2 % (0-9); % MONOS 7 % (0-10); % SEGS 91 % (35-66); PLT ESTIMATE ADEQUATE (ADEQUATE)
[2021-11-15 11:00] VITALS: BP 154/61
[2021-11-15] MEDS: ENOXAPARIN 30 MG/0.3 ML SYRINGE. SQ SCH (11:05)
[2021-11-15] MEDS ORDERED: HYDROcodone/APAP 5/325MG 1 TAB TABLET PO PRN (11:45)
--- NOTE | 2021-11-15 11:49 | PDOC ---
Provider Note Date of Service: DATE: 11/15/21 TIME: 11:48 Provider Note back pain worse, was bad prior to covid , will add more opioid as discussed w/ thais for comfort , still very guarded prognosis- comfort care, decadron- repeat cxr Justifications for Admission Other Justification LJ LUZ MD Nov 15, 2021 11:49
--- NOTE | 2021-11-15 12:06 | PDOC ---
PULMONARY PROGRESS NOTES DATE: 11/15/21 TIME: 12:05 Subjective Patient appears to be more short of air today continues to require nonrebreather , patient has deteriorated over the last 24 to 48 hours, Vitals Vital Signs Date Time Temp Pulse Resp B/P (MAP) Pulse Ox O2 Delivery O2 Flow Rate FiO2 11/15/21 08:00 Non-Rebreather 15.0 11/15/21 07:00 100.0 76 18 144/67 (92) 94 100.0 ROS: No Nausea, No Chest Pain, No Abdominal Pain, No Increase Cough General: Alert Lungs: Crackles Cardiovascular: S1, S2 Abdomen: Soft, Non-tender Neuro Exam: Alert Extremities: No Edema Skin: Warm Labs Laboratory Tests Test 11/15/21 07:10 White Blood Count 16.0 x10^3/uL (4.0-11.0) Red Blood Count 3.88 x10^6/uL (3.50-5.40) Hemoglobin 12.8 g/dL (12.0-15.5) Hematocrit 36.7 % (36.0-47.0) Mean Corpuscular Volume 95 fL (79-100) Mean Corpuscular Hemoglobin 33 pg (25-35) Mean Corpuscular Hemoglobin Concent 35 g/dL (31-37) Red Cell Distribution Width 13.6 % (11.5-14.5) Platelet Count 241 x10^3/uL (140-400) Neutrophils (%) (Auto) 92 % (31-73) Lymphocytes (%) (Auto) 3 % (24-48) Monocytes (%) (Auto) 5 % (0-9) Eosinophils (%) (Auto) 0 % (0-3) Basophils (%) (Auto) 0 % (0-3) Neutrophils # (Auto) 14.8 x10^3/uL (1.8-7.7) Lymphocytes # (Auto) 0.4 x10^3/uL (1.0-4.8) Monocytes # (Auto) 0.8 x10^3/uL (0.0-1.1) Eosinophils # (Auto) 0.0 x10^3/uL (0.0-0.7) Basophils # (Auto) 0.0 x10^3/uL (0.0-0.2) Segmented Neutrophils % 91 % (35-66) Band Neutrophils % 2 % (0-9) Monocytes % 7 % (0-10) Platelet Estimate Adequate (ADEQUATE) Sodium Level 144 mmol/L (136-145) Potassium Level 3.8 mmol/L (3.5-5.1) Chloride Level 106 mmol/L (98-107) Carbon Dioxide Level 25 mmol/L (21-32) Anion Gap 13 (6-14) Blood Urea Nitrogen 17 mg/dL (7-20) Creatinine 0.8 mg/dL (0.6-1.0) Estimated GFR (Cockcroft-Gault) 68.2 Glucose Level 118 mg/dL (70-99) Calcium Level 7.8 mg/dL (8.5-10.1) Laboratory Tests Test 11/15/21 07:10 White Blood Count 16.0 x10^3/uL (4.0-11.0) Red Blood Count 3.88 x10^6/uL (3.50-5.40) Hemoglobin 12.8 g/dL (12.0-15.5) Hematocrit 36.7 % (36.0-47.0) Mean Corpuscular Volume 95 fL (79-100) Mean Corpuscular Hemoglobin 33 pg (25-35) Mean Corpuscular Hemoglobin Concent 35 g/dL (31-37) Red Cell Distribution Width 13.6 % (11.5-14.5) Platelet Count 241 x10^3/uL (140-400) Neutrophils (%) (Auto) 92 % (31-73) Lymphocytes (%) (Auto) 3 % (24-48) Monocytes (%) (Auto) 5 % (0-9) Eosinophils (%) (Auto) 0 % (0-3) Basophils (%) (Auto) 0 % (0-3) Neutrophils # (Auto) 14.8 x10^3/uL (1.8-7.7) Lymphocytes # (Auto) 0.4 x10^3/uL (1.0-4.8) Monocytes # (Auto) 0.8 x10^3/uL (0.0-1.1) Eosinophils # (Auto) 0.0 x10^3/uL (0.0-0.7) Basophils # (Auto) 0.0 x10^3/uL (0.0-0.2) Segmented Neutrophils % 91 % (35-66) Band Neutrophils % 2 % (0-9) Monocytes % 7 % (0-10) Platelet Estimate Adequate (ADEQUATE) Sodium Level 144 mmol/L (136-145) Potassium Level 3.8 mmol/L (3.5-5.1) Chloride Level 106 mmol/L (98-107) Carbon Dioxide Level 25 mmol/L (21-32) Anion Gap 13 (6-14) Blood Urea Nitrogen 17 mg/dL (7-20) Creatinine 0.8 mg/dL (0.6-1.0) Estimated GFR (Cockcroft-Gault) 68.2 Glucose Level 118 mg/dL (70-99) Calcium Level 7.8 mg/dL (8.5-10.1) Medications Active Scripts Medications Dose Route/Sig Max Daily Dose Days Date Category Omeprazole 40 Mg Capsule.dr 1 Cap PO DAILY 11/09/21 Reported Hydrocodone-Apap 5-325 (Hydrocodone Bit/Acetaminophen) 1 Tab Tablet 1 Tab PO PRN DAILY PRN 11/09/21 Reported Zoloft (Sertraline Hcl) 25 Mg Tablet 1 Tab PO DAILY 11/09/21 Reported Diclofenac Sodium 75 Mg Tablet.dr 75 Mg PO DAILY 11/09/21 Reported Impression . IMPRESSION: 1. Acute hypoxic respiratory failure secondary to COVID-19 viral pneumonia. 2. Abnormal chest x-ray with bilateral interstitial infiltrates consistent with COVID-19 viral pneumonia. 3. No significant tobacco use. 4. Acute kidney injury. Plan . Updated 11/[address] Hernandez Patient expected to do poorly Continue oxygen supplementation Steroids DVT prophylaxis Patient is currently DNR JEAN LAY MD Nov 15, 2021 12:06
[2021-11-15 15:00] VITALS: BP 138/65
[2021-11-15] MEDS: HYDROmorphone 2 MG/ML INJ. IVP PRN (15:22)
[2021-11-15 19:00] VITALS: BP 154/75
[2021-11-15 23:02] VITALS: BP 145/59
[2021-11-16 03:05] VITALS: BP 154/75
[2021-11-16 07:00] VITALS: BP 154/95
[2021-11-16] MEDS: SERTRALINE 25 MG TABLET. PO SCH (08:22)
[2021-11-16] MEDS: DEXAMETHASONE 4 MG TABLET PO SCH (08:22)
[2021-11-16] MEDS: SUCRALFATE 1 GM TABLET. PO SCH ×4 (08:22→19:48)
[2021-11-16] MEDS: PANTOPRAZOLE 40 MG TABLET.DR. PO SCH (08:22)
--- NOTE | 2021-11-16 08:23 | PDOC ---
Provider Note Date of Service: DATE: 11/16/21 TIME: 08:22 Provider Note cxr markedly worse, will add rocep/azith but feel she is preterminal- in dilaudid available, d/w daughter by phone Justifications for Admission Other Justification LJ LUZ MD Nov 16, 2021 08:23
--- NOTE | 2021-11-16 08:52 | PDOC ---
PULMONARY PROGRESS NOTES DATE: 11/16/21 TIME: 08:52 Subjective No major changes continues to require nonrebreather , patient has deteriorated over the last 24 to 48 hours, Vitals Vital Signs Date Time Temp Pulse Resp B/P (MAP) Pulse Ox O2 Delivery O2 Flow Rate FiO2 11/16/21 04:45 96 15.0 11/16/21 03:05 97.5 87 20 154/75 (101) NonRebreather Mask 97.5 ROS: No Nausea, No Chest Pain, No Abdominal Pain, No Increase Cough General: Alert Lungs: Crackles Cardiovascular: S1, S2 Abdomen: Soft, Non-tender Neuro Exam: Alert Extremities: No Edema Skin: Warm Labs Laboratory Tests Test 11/15/21 07:10 White Blood Count 16.0 x10^3/uL (4.0-11.0) Red Blood Count 3.88 x10^6/uL (3.50-5.40) Hemoglobin 12.8 g/dL (12.0-15.5) Hematocrit 36.7 % (36.0-47.0) Mean Corpuscular Volume 95 fL (79-100) Mean Corpuscular Hemoglobin 33 pg (25-35) Mean Corpuscular Hemoglobin Concent 35 g/dL (31-37) Red Cell Distribution Width 13.6 % (11.5-14.5) Platelet Count 241 x10^3/uL (140-400) Neutrophils (%) (Auto) 92 % (31-73) Lymphocytes (%) (Auto) 3 % (24-48) Monocytes (%) (Auto) 5 % (0-9) Eosinophils (%) (Auto) 0 % (0-3) Basophils (%) (Auto) 0 % (0-3) Neutrophils # (Auto) 14.8 x10^3/uL (1.8-7.7) Lymphocytes # (Auto) 0.4 x10^3/uL (1.0-4.8) Monocytes # (Auto) 0.8 x10^3/uL (0.0-1.1) Eosinophils # (Auto) 0.0 x10^3/uL (0.0-0.7) Basophils # (Auto) 0.0 x10^3/uL (0.0-0.2) Segmented Neutrophils % 91 % (35-66) Band Neutrophils % 2 % (0-9) Monocytes % 7 % (0-10) Platelet Estimate Adequate (ADEQUATE) Sodium Level 144 mmol/L (136-145) Potassium Level 3.8 mmol/L (3.5-5.1) Chloride Level 106 mmol/L (98-107) Carbon Dioxide Level 25 mmol/L (21-32) Anion Gap 13 (6-14) Blood Urea Nitrogen 17 mg/dL (7-20) Creatinine 0.8 mg/dL (0.6-1.0) Estimated GFR (Cockcroft-Gault) 68.2 Glucose Level 118 mg/dL (70-99) Calcium Level 7.8 mg/dL (8.5-10.1) Medications Active Scripts Medications Dose Route/Sig Max Daily Dose Days Date Category Omeprazole 40 Mg Capsule. 1 Cap PO DAILY 11/09/21 Reported Hydrocodone-Apap 5-325 (Hydrocodone Bit/Acetaminophen) 1 Tab Tablet 1 Tab PO PRN DAILY PRN 11/09/21 Reported Zoloft (Sertraline Hcl) 25 Mg Tablet 1 Tab PO DAILY 11/09/21 Reported Diclofenac Sodium 75 Mg Tablet. 75 Mg PO DAILY 11/09/21 Reported Impression . IMPRESSION: 1. Acute hypoxic respiratory failure secondary to COVID-19 viral pneumonia. 2. Abnormal chest x-ray with bilateral interstitial infiltrates consistent with COVID-19 viral pneumonia. 3. No significant tobacco use. 4. Acute kidney injury. Plan . Updated 11/16 Continue current support antibiotics added, suspect chest x-ray is worse as a consequence of ARDS Consider palliative care Agree with Dr. Hernandez Patient expected to do poorly Continue oxygen supplementation Steroids DVT prophylaxis Patient is currently DNR JEAN LAY MD Nov 16, 2021 08:52
[2021-11-16] MEDS: AZITHROMYCIN 500 MG in IV NORMAL SALINE 250ML 250 ML IV SCH (10:13)
[2021-11-16] MEDS: cefTRIAXone IV Push 1 GM VIAL. IVP SCH (10:13)
[2021-11-16] MEDS: ENOXAPARIN 30 MG/0.3 ML SYRINGE. SQ SCH (10:14)
[2021-11-16] MEDS: POTASSIUM CL 20MEQ D5-0.45NACL 1,000 ML IV SCH ×2 (10:47→14:00)
[2021-11-16 11:00] VITALS: BP 138/65
[2021-11-16 15:00] VITALS: BP 150/67
--- NOTE | 2021-11-16 15:18 | RAD ---
XR CHEST 1V History: Reason: covid SHORTNESS OF AIR / Spl. Instructions: / History: Comparison: November 08, 2021 Findings: Increased diffuse moderate pulmonary opacities. No pleural effusion. No pneumothorax. Unchanged heart size. Impression: 1. Increased moderate diffuse pulmonary opacities. Electronically signed by: Thor Winter DO (11/16/2021 3:16 PM) [facility] [place]
[2021-11-16] MEDS: HYDROmorphone 2 MG/ML INJ. IVP PRN (17:18)
[2021-11-16 19:00] VITALS: BP 154/91
[2021-11-16 23:00] VITALS: BP 123/78
[2021-11-17] MEDS: HYDROmorphone 2 MG/ML INJ. IVP PRN ×4 (00:53→14:36)
[2021-11-17] MEDS: POTASSIUM CL 20MEQ D5-0.45NACL 1,000 ML IV SCH ×2 (02:31→15:00)
[2021-11-17 03:00] VITALS: BP 154/63
[2021-11-17 07:00] VITALS: BP 154/72
[2021-11-17] MEDS: SUCRALFATE 1 GM TABLET. PO SCH ×4 (07:30→21:00)
[2021-11-17] MEDS: PANTOPRAZOLE 40 MG TABLET.DR. PO SCH (07:30)
--- NOTE | 2021-11-17 08:09 | PDOC ---
Provider Note Date of Service: DATE: 11/17/21 TIME: 08:08 Provider Note sedated after dilaudid/loraz, now on bipap- sats still low, rest same - odubt her recovery at this point despite meds- comfort care continues, is dnr Justifications for Admission Other Justification LJ LUZ MD Nov 17, 2021 08:09
[2021-11-17] MEDS: SERTRALINE 25 MG TABLET. PO SCH (09:00)
[2021-11-17] MEDS: AZITHROMYCIN 500 MG in IV NORMAL SALINE 250ML 250 ML IV SCH (09:37)
[2021-11-17] MEDS: cefTRIAXone IV Push 1 GM VIAL. IVP SCH (09:39)
--- NOTE | 2021-11-17 10:44 | PDOC ---
PULMONARY PROGRESS NOTES DATE: 11/17/21 TIME: 10:42 Subjective No major changes continues to require 100% FiO2 via BiPAP. Vitals Vital Signs Date Time Temp Pulse Resp B/P (MAP) Pulse Ox O2 Delivery O2 Flow Rate FiO2 11/17/21 10:32 91 10.0 11/17/21 07:00 101.0 105 26 154/72 (99) BiPAP/CPAP 101.0 ROS: No Nausea, No Chest Pain, No Abdominal Pain, No Increase Cough Lungs: Crackles Cardiovascular: S1, S2 Abdomen: Soft, Non-tender Extremities: No Edema Skin: Warm Medications Active Scripts Medications Dose Route/Sig Max Daily Dose Days Date Category Omeprazole 40 Mg Capsule.dr 1 Cap PO DAILY 11/09/21 Reported Hydrocodone-Apap 5-325 (Hydrocodone Bit/Acetaminophen) 1 Tab Tablet 1 Tab PO PRN DAILY PRN 11/09/21 Reported Zoloft (Sertraline Hcl) 25 Mg Tablet 1 Tab PO DAILY 11/09/21 Reported Diclofenac Sodium 75 Mg Tablet. 75 Mg PO DAILY 11/09/21 Reported Impression . IMPRESSION: 1. Acute hypoxic respiratory failure secondary to COVID-19 viral pneumonia./ARDS. 2. Abnormal chest x-ray with bilateral interstitial infiltrates consistent with COVID-19 viral pneumonia. 3. No significant tobacco use. 4. Acute kidney injury. 5. Fever. Possible superimposed bacterial pneumonia Plan . Continue current support, antibiotics added, suspect chest x-ray is worse as a consequence of ARDS Consider palliative care Agree with Dr. Hernandez Patient expected to do poorly and not likely to survive. Continue oxygen supplementation Of steroids DVT prophylaxis Patient is currently DNR Will be available for any further recommendations. We will see her as needed. LORI BERNABE MD Nov 17, 2021 10:44
[2021-11-17 11:00] VITALS: BP 134/78
[2021-11-17 15:00] VITALS: BP 128/67
[2021-11-17 19:00] VITALS: BP 97/40
[2021-11-17] MEDS ORDERED: LACTOBACILLUS RHAMNOSUS GG 1 CAPSULE. PO SCH (21:00)
[2021-11-17 23:00] VITALS: BP 198/124
[2021-11-18] MEDS: HYDROmorphone 2 MG/ML INJ. IVP PRN (00:35)
[2021-11-18 03:00] VITALS: BP 63/38
[2021-11-18] MEDS: POTASSIUM CL 20MEQ D5-0.45NACL 1,000 ML IV SCH (04:21)
--- NOTE | 2021-11-18 07:57 | NUR ---
Patient pronounced time of 0437, RN was at bedside. Daughter Keiko, Dr Hernandez, nursing nuclear medicine supervisor, and [place] notified as well. RN still awaiting mortuary information at time of this note. All personal belongings sent with patient, except for harris and food which were left at nurses station.
--- NOTE | 2021-11-18 11:03 | DS ---
DATE OF DISCHARGE: 11/18/2021 SUMMARY She on 11-17-2021. HOSPITAL SUMMARY: An 86-year-old healthy female who was admitted with cough, congestion and fever and bilateral infiltrates consistent with COVID pneumonia, which she tested positive for. Laboratory studies were unremarkable throughout the hospital stay, but her chest x-ray worsened considerably after admission. She was treated with IV dexamethasone, IV fluids and the addition of Rocephin and azithromycin for the worsening of her pneumonia, but continued to decline. Oxygen saturations increased and she requested DNR, did not want to be on respirator. Comfort care measures were given and we used IV Dilaudid and lorazepam for relief of symptoms and she early in the morning of 11/17/2021. Family was aware of her poor prognosis and they were able to visit her prior to her . FINAL DIAGNOSES: Bilateral pneumonia secondary to COVID-19. OPERATIONS, PROCEDURES, AND COMPLICATIONS: None. CONSULTATION: Robert Coelho MD. DISPOSITION: She was released to the home. No postmortem examination was requested. ALIYAH PHILLIP: Gina TID: [id number]
== END 2021-11-18 07:00 | DRG 177 ==
LOC: ER 13:25 → ED HOLD 18:27 → 5 NORTH 20:48
PROVIDERS: ADMIT Family Medicine; ATTEND Family Medicine
PROC: 5A09357 Assistance with Respiratory Ventilation, Less than 24 Consecutive Hours, Continuous Positive Airway Pressure (ICD-10-PCS; principal; 2021-11-16)
PROC: 5A09357 Assistance with Respiratory Ventilation, Less than 24 Consecutive Hours, Continuous Positive Airway Pressure (ICD-10-PCS; 2021-11-17)
DX: U07.1 COVID-19 (principal); J12.82 Pneumonia due to coronavirus disease 2019; J96.01 Acute respiratory failure with hypoxia; N17.9 Acute kidney failure, unspecified; K29.60 Other gastritis without bleeding; T38.0X5A Adverse effect of glucocorticoids and synthetic analogues, initial encounter; Z90.12 Acquired absence of left breast and nipple; K21.9 Gastro-esophageal reflux disease without esophagitis; M19.90 Unspecified osteoarthritis, unspecified site; Z88.8 Allergy status to other drugs, medicaments and biological substances; Y92.89 Other specified places as the place of occurrence of the external cause; I10 Essential (primary) hypertension; Z66 Do not resuscitate
CPT/HCPCS: 36415; 71045; 80048; 80053; 82271; 85007; 85025; 85027; 87426; 87804; 93005; 94618; 94660; 96361; 96374; J0456; J0696; J1100; J1170; J1650; J2060; J2405; J3480; J7030; J7050; 99285-25; G0378